=== PATIENT | female | born 1995 | race Hispanic/Latino ===

== ENCOUNTER 2024-08-15 11:13 | Emergency (ER) | payer SELFPAY ==
[2024-08-15] MEDS ORDERED: KETOROLAC 30 MG/ML INJ ONE (11:27)
[2024-08-15] MEDS ORDERED: NA CHLORIDE 0.9% 500 ML ONE (11:28)
[2024-08-15] MEDS ORDERED: DIPHENHYDRAMINE 50 MG/ML VIAL ONE (11:28)
[2024-08-15] MEDS ORDERED: METOCLOPRAMIDE 10 MG/2mL INJ ONE (11:28)
[2024-08-15 11:33] LABS: Absolute Lymphocytes (CBC) 2.4 K/uL (0.7-4.9); Absolute Monocytes 0.3 K/uL (0.1-1.3); Absolute Neutrophil 3.5 K/uL (1.8-8.0); Basophils % 0.5 % (0-1.3); Eosinophils % 0.6 % (0-4.4); Hematocrit 39.7 % (36.0-45.0); Hemoglobin 13.6 g/dL (12.0-15.0); Lymphocytes % 37.9 % (15.3-44.8); MCH 29.4 pg (27.0-35.0); MCHC 34.2 g/dL (32.0-36.0); MCV 85.8 fL (80-100); MPV 8.2 fL (7.6-11.3); Monocytes % 5.3 % (3.3-12.3); Neutrophils % 55.7 % (41.7-73.7); Nucleated Red Blood Cells % 0.1 % (0-0); Platelets 196 thou/uL (152-406); RBC Red Blood Cell Count 4.63 M/uL (3.86-4.86); Red Cell Distribution Width 12.8 % (12.1-15.2)
[2024-08-15 11:39] LABS: Anion Gap 8.4 mEq/L (5.0-15.0); Potassium 3.4 mEq/L (3.5-5.1)
[2024-08-15] MEDS ORDERED: DIAZEPAM 5 MG TABLET ONE (11:54)
[2024-08-15 12:14] LABS: Thyroid Stimulating Hormone 0.706 uIU/mL (0.358-3.740)
[2024-08-15 12:38] LABS: Specific Gravity 1.006 (1.005-1.030); Sqamous Epithelial <5 /HPF (None Seen); Urine Bacteria None Seen /HPF (<20); Urine Bilirubin NEGATIVE (Negative); Urine Blood Negative (Negative); Urine Clarity Turbid (Clear); Urine Color Colorless (Yellow); Urine Culture Reflex Order NOT NEEDED; Urine Glucose NEGATIVE (Negative); Urine Ketones NEGATIVE (Negative); Urine Micro Reflex YN NO BILL MICROSCOPIC; Urine Nitrite NEGATIVE (Negative); Urine Protein NEGATIVE (Negative); Urine RBC None Seen /HPF (None Seen); Urine Urobilinogen Normal (Normal); Urine WBC None Seen /HPF (<5); Urine Yeast (Budding) Trace /HPF (None Seen); Urine pH 6.5 (5.0-7.0)
--- NOTE | 2024-08-15 13:04 | EDPHYS ---
Physician Documentation [facility] Name: Yoli Golden Age: 28 yrs Sex: Female : 1995 Arrival Date: 08/15/2024 Time: 11:13 Bed 4 Private MD: ED Physician Kingsley Henry HPI: 08/15 11:16 This 28 yrs old Female presents to ER via Unassigned with complaints of KONG, ec2 n/v. 11:16 Patient arrives today for evaluation of headache along with nausea and vomiting. ec2 Reports she is been having her headache for the past several days. Denies any falls injuries or trauma. Patient reports otherwise she has a history of migraines, has been taking Tylenol with some improvement in symptoms.. 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 - Infectious Disease History:: Denies. - Social history:: Smoking status: Patient denies any tobacco usage or history of. ROS: 11:16 Constitutional: as per hpi ec2 Exam: 11:16 Constitutional: GEN: NAD Head: atraumatic Eyes: EOMI Ears: External ears are ec2 normal. CV: regular rate LUNGS: no respiratory distress ABD: non-distended SKIN: no evidence of rashes MSK: no evidence of trauma. Neuro: Cranial nerves II through XII intact, strength intact upper extremities. Vital Signs: 11:15 BP 118 / 87; Pulse 115; Resp 19 S; Temp 98.6(O); Pulse Ox 100% on R/A; Weight 63.5 kg; ha1 Height 5 ft. 4 in. ; 11:25 BP 118 / 87; Pulse 96; ec2 12:10 BP 113 / 73; Pulse 99; Resp 17 S; Pulse Ox 100% on R/A; ha1 13:30 BP 117 / 71; Pulse 88; Resp 17 S; Temp 97.6; Pulse Ox 100% on R/A; ha1 11:15 Body Mass Index 24.03 (63.50 kg, 162.56 cm) ha1 MDM: 11:15 Medical Screening Exam initiated ec2 11:17 Data reviewed: vital signs, nurses notes. ED course: Patient arrives today with a ec2 history of migraines with concern for headache. Examination yields intact neurologic exam. Will obtain lab work, treat the patient's symptoms. Suspect migrainous symptoms. Patient also reports some anxiety as well. Reports palpitations. EKG obtained, independently reviewed and interpreted by me, shows sinus tachycardia, rate 102, no acute ST segment elevations, normals are nonactionable.. 13:02 ED course: Patient did have some bouts of tachycardia, given the reports of ec2 palpitations, add on a D-dimer which was normal, thyroid studies were normal as well. On reassessment patient is well-appearing no acute distress. 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 Will discharge home. Return precautions given.. 08/15 11:15 Order name: Basic Metabolic Panel; Complete Time: 11:47 ec08/15 11:15 Order name: CBC with Diff; Complete Time: 11:47 ec08/15 11:48 Order name: TSH; Complete Time: 12:15 ec08/15 11:48 Order name: T4 Free; Complete Time: 12:15 ec2 08/15 11:48 Order name: D-Dimer; Complete Time: 13:02 ec2 08/15 11:52 Order name: UAM; Complete Time: 12:49 ec08/15 11:15 Order name: Cardiac monitoring; Complete Time: 11: ec08/15 11:15 Order name: EKG - Nurse/Tech; Complete Time: : ec08/15 11:15 Order name: IV Saline Lock; Complete Time: 08/15 11:15 Order name: Labs collected and sent; Complete Time: ec08/15 11:15 Order name: O2 Per Protocol; Complete Time: : ec08/15 11:15 Order name: O2 Sat Monitoring; Complete Time: : ec2 Administered Medications: 11:39 Drug: NS 0.9% IV 500 ml 500 ml IV at 1 bolus once; to be given as a bolus over 30 kc6 minutes Volume: 500 ml; Route: IV; Rate: 1 bolus; Site: right antecubital; 13:32 Follow up: Response: No adverse reaction; IV Status: Completed infusion; IV Intake: ha1 500ml 11:39 Drug: metoCLOPramide IVP 10 mg IVP once; over 1 to 2 minutes Route: IVP; Site: right kc6 antecubital; 12:00 Follow up: Response: No adverse reaction; Marked relief of symptoms ha1 11:39 Drug: diphenhydrAMINE IVP 25 mg IVP once Route: IVP; Site: right antecubital; kc6 12:00 Follow up: Response: No adverse reaction; Marked relief of symptoms ha1 11:39 Drug: Ketorolac IVP 15 mg IVP once Route: IVP; Site: right antecubital; kc6 12:00 Follow up: Response: No adverse reaction; Marked relief of symptoms; Pain is decreased ha1 12:11 Drug: Diazepam IVP 5 mg IVP once {Note: GIVEN PO.} Route: IVP; Site: Other; ha1 12:40 Follow up: Response: No adverse reaction; Marked relief of symptoms ha1 Disposition Summary: 08/15/24 13:03 Discharge Ordered Notes: Location: Home ec2 Condition: Stable ec2 Diagnosis - Headache ec2 Followup: ec2 - With: Private Physician - When: - Reason: Re-evaluation by your physician Discharge Instructions: - Discharge Summary Sheet ec2 - General Headache Without Cause ec2 Forms: - Medication Reconciliation Form ec2 - Antibiotic Education ec2 - Prescription Opioid Use ec2 - Patient Portal Instructions ec2 - Leadership Thank You Letter ec2 Prescriptions: - Compazine 10 mg Oral Tablet - take 1 tablet ORAL route every 8 hours As needed; 20 tablet; Refills: 0, ec2 Product Selection Permitted Signatures: Dispatcher [employer] Iris Braswell RN RN ha1 Leonora Coburn RN RN kc6 Kingsley Henry MD MD ec2 Corrections: (The following items were deleted from the chart) 11:17 11:17 ED course: Patient arrives today with a history of migraines with concern for ec2 headache. Examination yields intact neurologic exam. Will obtain lab work, treat the patient's symptoms. Suspect migrainous symptoms. Patient also reports some anxiety as well. Reports palpitations. EKG obtained, independently reviewed and interpreted by me, shows sinus tachycardia, rate 112, no acute ST segment elevations, normals are nonactionable.. ec2
--- NOTE | 2024-08-15 13:04 | ER ---
Nurse's Notes [facility] Name: Yoli Golden Age: 28 yrs Sex: Female : 1995 Arrival Date: 08/15/2024 Time: 11:13 Bed 4 Private MD: Diagnosis: Headache Presentation: 08/15 11:15 Chief complaint: EMS states: HEADACHE FOR THE PAST THREE DAYS, SHORTNESS OF BREATH. SHE ha1 GOT A SHOT OF NEUROBION A TUVALUAN MEDICATION TO THREAT HEADACHE. NAUSEA AND VOMITING AFTER SHOT. 11:15 Coronavirus screen: Client denies travel out of the [place] in the last 14 days. Ebola ha1 Screen: No symptoms or risks identified at this time. Initial Sepsis Screen: Does the patient meet any 2 criteria? No. Patient's initial sepsis screen is negative. Does the patient have a suspected source of infection? No. Patient's initial sepsis screen is negative. Risk Assessment: Do you want to hurt yourself or someone else? Patient reports no desire to harm self or others. Onset of symptoms was August 15, 2024. 11:15 Method Of Arrival: EMS: [facility] ha1 11:15 Acuity: BRENDA 3 ha1 Triage Assessment: 11:15 Headache History: The patient has had previous headaches and this one is similar to [facility] previous episodes. General: Appears uncomfortable, Behavior is calm, cooperative. Pain: Complains of pain in HEADACHE Pain does not radiate. Pain currently is 9 out of 10 on a pain scale. Quality of pain is described as pressure, throbbing, Pain began gradually, 2-3 days ago. Is intermittent, Alleviated by medications. Neuro: Level of Consciousness is awake, alert, obeys commands, Oriented to person, place, time, situation. Cardiovascular: Reports shortness of breath. Respiratory: Airway is patent Respiratory effort is even, unlabored, Respiratory pattern is regular, symmetrical. GI: Abdomen is round non-distended, Reports nausea, vomiting. : No signs and/or symptoms were reported regarding the genitourinary system. Derm: Skin is healthy with good turgor, Skin is moist, Skin is normal. Musculoskeletal: Circulation, motion, and sensation intact. Range of motion: intact in all extremities. 13:32 Pain: Also complains of no other associated symptoms. 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 - Infectious Disease History:: Denies. - Social history:: Smoking status: Patient denies any tobacco usage or history of. Screenin:31 [facility] ED Fall Risk Assessment (Adult) History of falling in the last 3 months, ha1 including since admission No falls in past 3 months (0 pts) Confusion or Disorientation No (0 pts) Intoxicated or Sedated No (0 pts) Impaired Gait No (0 pts) Mobility Assist Device Used No (0 pt) Altered Elimination No (0 pt) Score/Fall Risk Level 0 - 2 = Low Risk Oriented to surroundings, Maintained a safe environment, Educated pt \T\ family on fall prevention, incl call for assistance when getting out of bed, Hourly rounding (assess needs \T\ fall precautionary measures) done. Abuse screen: Denies threats or abuse. Denies injuries from another. Nutritional screening: No deficits noted. Tuberculosis screening: No symptoms or risk factors identified. Assessment: 11:15 Reassessment: SEE TRIAGE ASSESSMENT. ha1 12:10 Reassessment: Patient and/or family updated on plan of care and expected duration. Pain ha1 level reassessed. Patient is alert, oriented x 3, equal unlabored respirations, skin warm/dry/pink. Patient states feeling better. Patient states symptoms have improved. 13:10 Reassessment: Patient and/or family updated on plan of care and expected duration. Pain ha1 level reassessed. Patient is alert, oriented x 3, equal unlabored respirations, skin warm/dry/pink. Patient denies pain at this time. Patient states feeling better. Patient states symptoms have improved. Vital Signs: 11:15 BP 118 / 87; Pulse 115; Resp 19 S; Temp 98.6(O); Pulse Ox 100% on R/A; Weight 63.5 kg; ha1 Height 5 ft. 4 in. ; 11:25 BP 118 / 87; Pulse 96; ec2 12:10 BP 113 / 73; Pulse 99; Resp 17 S; Pulse Ox 100% on R/A; ha1 13:30 BP 117 / 71; Pulse 88; Resp 17 S; Temp 97.6; Pulse Ox 100% on R/A; ha1 11:15 Body Mass Index 24.03 (63.50 kg, 162.56 cm) ha1 ED Course: 11:15 Patient arrived in ED. ec2 11:15 Kingsley Henry MD is Attending Physician. ec2 11:15 Patient has correct armband on for positive identification. Bed in low position. Call ha1 light in reach. Side rails up X 1. 11:15 Provided Education on: PLAN OF CARE . ha1 11:20 Inserted saline lock: 20 gauge in right antecubital area, using aseptic technique. ss Blood collected. Flushed with 10 mL NS. 11:21 Basic Metabolic Panel Sent. ss 11:21 CBC with Diff Sent. ss 11:28 Triage completed. ha1 11:42 youth nutritional monitor on. Pulse ox on. NIBP on. Door closed. Noise minimized. Lights dimmed. kc6 Warm blanket given. Pillow given. 11:43 Patient maintains SpO2 saturation greater than 95% on room air. kc6 11:43 Arm band placed on. kc6 11:53 T4 Free Sent. kc6 11:53 TSH Sent. kc6 11:53 Assisted to bathroom. kc6 13:30 Iris Strauss, RN is Primary Nurse. 1 13:31 No provider procedures requiring assistance completed. IV discontinued, intact, ha1 bleeding controlled, No redness/swelling at site. Pressure dressing applied. Administered Medications: 11:39 Drug: NS 0.9% IV 500 ml 500 ml IV at 1 bolus once; to be given as a bolus over 30 kc6 minutes Volume: 500 ml; Route: IV; Rate: 1 bolus; Site: right antecubital; 13:32 Follow up: Response: No adverse reaction; IV Status: Completed infusion; IV Intake: ha1 500ml 11:39 Drug: metoCLOPramide IVP 10 mg IVP once; over 1 to 2 minutes Route: IVP; Site: right kc6 antecubital; 12:00 Follow up: Response: No adverse reaction; Marked relief of symptoms ha1 11:39 Drug: diphenhydrAMINE IVP 25 mg IVP once Route: IVP; Site: right antecubital; [facility] 12:00 Follow up: Response: No adverse reaction; Marked relief of symptoms ha1 11:39 Drug: Ketorolac IVP 15 mg IVP once Route: IVP; Site: right antecubital; kc6 12:00 Follow up: Response: No adverse reaction; Marked relief of symptoms; Pain is decreased ha1 12:11 Drug: Diazepam IVP 5 mg IVP once {Note: GIVEN PO.} Route: IVP; Site: Other; ha1 12:40 Follow up: Response: No adverse reaction; Marked relief of symptoms ha1 Medication: 11:31 VIS not applicable for this client. ha1 Intake: 13:32 IV: 500ml; Total: 500ml. ha1 Outcome: 13:03 Discharge ordered by . ec2 13:31 Discharged to home ambulatory, with family, ha1 13:31 Condition: improved 13:31 Discharge instructions given to patient, Instructed on discharge instructions, follow up and referral plans. medication usage, Demonstrated understanding of instructions, follow-up care, medications, Prescriptions given X 1, 13:34 Patient left the ED. ha1 Signatures: Benita Briones RN RN Iris Strauss RN RN 1 Leonora Coburn RN RN kc6 Kingsley Henry MD MD ec2
[2024-08-15 13:57] VITALS: O2SAT 100
[2024-08-15 14:01] VITALS: BP 117/71; TEMP 97.6
--- NOTE | 2024-08-17 13:00 | EKG ---
Test Date: 2024-08-15 Test Time: 11:16:54 Chief Mechanical Engineer: JL MEASUREMENT RESULTS: Intervals: Rate: 102 MD: 144 QRSD: 84 QT: 342 QTc: 445 [place]: P: 52 MD: 144 QRS: 49 T: 58 INTERPRETIVE STATEMENTS: Sinus tachycardia Nonspecific T wave abnormality Abnormal ECG No previous ECG available for comparison Electronically Signed On 08-17-24 12:58:42 EXCELSIOR MACHINE TENDER by Inocente Chance
== END 2024-08-15 13:34 | disposition home or self-care (01) ==
LOC: ER 11:13
DX: R51.9 Headache, unspecified (principal); R11.2 Nausea with vomiting, unspecified
CPT/HCPCS: 36415; 80048; 81001; 84439; 84443; 85025; 85379; 93005; 99285; J1200; J2765; J7040